=== PATIENT | female | born 1955 | race Caucasian/White ===

== ENCOUNTER 2017-08-04 12:59 | Inpatient (IN) ==
[2017-08-04] MEDS ORDERED: 0.9 % Sodium Chloride 1,000 ML IVC ONE ×2 (13:21→14:21)
[2017-08-04] MEDS ORDERED: Ipratropium/Albuterol Neb 3 ML IH ONE (13:21)
[2017-08-04] MEDS ORDERED: methylPREDNISolone 125 MG/2 ML VIAL IVP ONE (13:21)
--- NOTE | 2017-08-04 13:26 | Emergency Department Note ---
Disposition Clinical Impression: Acute exacerbation of chronic obstructive airways disease, Acute respiratory failure with hypoxia and hypercapnia Leucocytosis Qualifiers: Leukocytosis type: unspecified Qualified Code(s): D72.829 - Elevated white blood cell count, unspecified Disposition: Admitted As Inpatient Condition: Fair Referrals: Chiqui Slater CNP [Primary Care Provider] - Forms: ED Satisfaction Letter SOB HPI - General Chief Complaint: ED Shortness of Breath/Dyspnea Stated Complaint: resp distress Time Seen by Provider: 08/04/17 13:02 Source: patient, family (brother) Limitations: no limitations Nursing Notes Reviewed: Yes Vital Signs Reviewed: Yes - History of Present Illness 62-year-old female presents for evaluation of shortness of breath. Patient had home health nurse check her pulse oximeter today and was found to be quite low at 79%. Patient is on chronic O2 therapy at 2-1/2 L. Patient was then brought to the emergency department. Patient states that over the last 2 days she has been coughing with productive sputum. She states no fever. She denies any chest pain. She states she also has had issues related to constipation with some mild discomfort in her left lower quadrant and decreased bowel movements. Patient has had multiple issues related to her lungs. She has known history of COPD and has had multiple admissions of pneumonia. - Related Data Home Medications Medication Instructions Recorded Confirmed Folic Acid 1 mg PO DAILY 06/16/15 06/28/17 Levothyroxine [Synthroid] 25 mcg PO DAILY 06/16/15 06/28/17 Montelukast [Singulair] 10 mg PO DAILY 11/18/15 06/28/17 Oxygen 3 l IH AD 11/18/15 06/28/17 FLUoxetine HCl [Fluoxetine HCl] 40 mg PO DAILY 06/14/16 06/28/17 Fluticasone Propionate Nasal 2 spr NS PRN PRN 02/02/17 06/28/17 [Flonase] Carvedilol [Coreg] 6.25 mg PO BID 04/21/17 06/28/17 Anastrozole [Arimidex] 1 mg PO DAILY 06/28/17 06/28/17 Previous Rx's Medication Instructions Recorded Insulin Glargine,Hum.rec.anlog 40 unit SQ HS #1 07/11/16 [Lantus Solostar] Albuterol Neb [Proventil Neb] 2.5 mg IH [id number] PRN inh 02/09/17 Polyethylene Glycol 3350 [MiraLAX 1 scoop PO DAILY #510 gm 04/21/17 Powder Bulk 17.9 Oz] Metoclopramide [Reglan] 5 mg PO QIDAC #120 tablet 05/13/17 Furosemide [Lasix] 20 mg PO BID #28 tab 05/20/17 Gabapentin [Neurontin] 300 mg PO TID #90 capsule 05/20/17 Insulin LISPRO [HumaLOG] 15 units SQ TIDWM 30 Days #0 vial 05/20/17 OxyCODONE Immed Rel [Roxicodone 5 5 mg PO Q6HR PRN #20 tab 05/20/17 MG] diazePAM [Valium] 5 mg PO TID PRN #20 tablet 05/20/17 Allergies Allergy/AdvReac Type Severity Reaction Status Date / Time acetaminophen [From Tylenol] Allergy Hives Verified 06/17/17 22:37 ibuprofen AdvReac Nausea Verified 06/17/17 22:37 NSAIDS (Non-Steroidal AdvReac Nausea Verified 06/17/17 22:37 Anti-Inflamma Review of Systems: Constitutional: [Negative for fever and chills.] HENT: [Negative for congestion.] Eyes: [Negative for discharge.] Respiratory: See history of present illness Cardiovascular: [Negative for chest pain.] Gastrointestinal: [Negative for nausea, vomiting, abdominal pain and diarrhea.] Positive for constipation Endocrine: [Negative for excessive thirst,urination] Genitourinary: [Negative for dysuria and frequency.] Musculoskeletal: [Negative for myalgias and arthralgias.] Skin: [Negative for rash.] Neurological: [Negative for dizziness, localized weakness and headaches.] Psychiatric/Behavioral: [Negative for nervous/anxious.] All other systems reviewed and are negative. Past Medical History - Past Medical History Attestation: Yes The following information was validated with the patient. Source: patient Medical history: Reports: arthritis, asthma, COPD, coronary artery disease, CVA , diabetes, GERD, hyperlipidemia, hypertension, thyroid disease, TIA Surgical history: Reports: breast surgery, orthopedic, other, other Psychiatric history: Reports: anxiety, depression FIELD SERVICES DIRECTOR history: Reports: no FIELD SERVICES DIRECTOR history - Social History Smoking Status: Current every day smoker Smokeless Tobacco Status: No Alcohol use: Reports: none Drug use: Reports: none Physical Exam Constitutional: Patient is [alert], obese and has a frequent gurgling-type cough and cooperative. . The patient appears symptomatic, nontoxic but does appear mildly ill. HENT: Head: Normocephalic and atraumatic. Right Ear: External ear normal. Left Ear: External ear normal. Nose: Nose normal. Mouth/Throat: Oropharynx is clear and mucous membranes show [good hydration.] Eyes: Conjunctivae and EOM are normal. Pupils are equal, round, and reactive to light. Right eye exhibits [no] discharge. Left eye exhibits [no] discharge. Neck: Trachea is midline, normal range of motion and [phonation normal]. Neck supple. Cardiovascular: [Regular rhythm], S1 normal, S2 normal, normal heart sounds and intact distal pulses. Exam reveals no gallop and no friction rub. No murmur heard. [Capillary refill is brisk.] [Peripheral pulses are 2+] Pulmonary/Chest: Effort increased No stridor. Mild tachypnea. [No] respiratory distress. There are decreased breath sounds. There are few rhonchi and wheezes heard throughout. Abdominal: Soft. [Bowel sounds are normal]. There exhibits [no] distension and [no] mass. There is no hepatosplenomegaly. There is [no tenderness], [no] CVA tenderness. There is [no rigidity, no rebound, no guarding]. Musculoskeletal: Normal range of motion of uninvolved extremities. There exhibits [no edema]. [ ] Neurological: Patient is alert. Patient displays no atrophy and no tremor. No cranial nerve deficit and exhibits normal muscle tone. Coordination normal grossly. Skin: Skin is warm and dry. No erythema. No rash noted. Psychiatric: Patient has a normal mood and affect. Course Course Narrative: Patient has received 2 breathing treatments and Solu-Medrol IV and still has wheezes on exam. She still requires oxygen. Her laboratory studies do not show this any significant infection with no elevated lactate no edema and a mildly elevated white count. I discussed the case with Dr. Aldana and we will admit her for further treatment. Vital Signs Temperature 96.6 F L 08/04/17 13:04 Pulse Rate 92 08/04/17 13:04 Respiratory Rate 18 08/04/17 13:04 Blood Pressure 126/64 08/04/17 13:04 O2 Sat by Pulse Oximetry 79 08/04/17 13:04 Temperature 96.6 F L 08/04/17 13:04 Pulse Rate 77 08/04/17 14:56 Respiratory Rate 18 08/04/17 14:56 Blood Pressure 128/76 08/04/17 14:56 O2 Sat by Pulse Oximetry 88 08/04/17 14:56 Oxygen Delivery Oxygen Delivery Nasal Cannula Shortness of Breath/Dyspnea - Differential Diagnosis Likely: acute exacerbation of chronic obstructive airways disease, pneumonia. Unlikely: congestive heart failure, asthma with exacerbation, pulmonary embolism , pneumothorax, arrhythmia - Medical Records Medical records reviewed: Yes I reviewed the patient's medical records. - Lab Data Lab results reviewed: Yes I reviewed the patient's lab results. Result diagrams: 08/04/17 13:40 08/04/17 13:40 Lab Results 08/04/17 08/04/17 08/04/17 Range/Units 11:40 13:40 13:40 WBC 17.1 H (4.3-11.1) K/mcL RBC 4.16 (3.82-4.97) M/mcL Hgb 12.2 (11.5-15.4) g/dL Hct 37.8 (35.3-44.9) % MCV 90.9 (83.0-100.0) fL MCH 29.3 (28.0-33.3) pg MCHC 32.3 (31.6-35.5) g/dL RDW 16.2 H (11.5-14.5) % Plt Count 331 (140-400) K/mcL MPV 9.3 L (9.4-12.4) fL Immature Gran % 0.8 (0-4) % Seg Neutrophils % 72.9 % Lymphocytes % 11.7 % Monocytes % 7.9 % Eosinophils % 6.3 % Basophils % 0.4 % Neutrophils # 12.5 H (1.6-8.9) K/mcL Lymphocytes # 2.0 (0.6-4.6) K/mcL Monocytes # 1.4 H (0.0-1.3) K/mcL Eosinophils # 1.1 H (0.0-0.6) K/mcL Basophils # 0.1 (0.0-0.2) K/mcL Nucleated RBCs/100 WBC 0.2 H (0) /100 WBC PT (9.4-12.1) Seconds INR APTT (26.0-36.0) Seconds ABG pH (7.32-7.45) pH Units ABG pCO2 (35-45) mmHg ABG pO2 (85-104) mmHg ABG HCO3 (21-27) mEq/L ABG Total CO2 (20-26) mEq/L ABG O2 Saturation (95-98) % ABG Base Excess (-2 to 3) mEq/L Sodium (136-145) mEq/L Potassium (3.5-5.1) mEq/L Chloride (98-107) mEq/L Carbon Dioxide (23-29) mEq/L BUN (8-23) mg/dL Creatinine (0.60-1.20) mg/dL Est GFR ( Amer) (> 60) Est GFR (Non-Af Amer) (> 60) BUN/Creatinine Ratio (6-26) Glucose (70-105) mg/dL Calculated Osmolality (280-300) Lactic Acid (0.5-2.2) mmol/L Calcium (8.6-10.3) mg/dL Total Bilirubin 0.3 (0.3-1.0) mg/dL Direct Bilirubin 0.1 (0.0-0.2) mg/dL Indirect Bilirubin 0.2 (0.0-1.2) mg/dL AST 6 L (13-39) Units/L ALT 6 L (7-52) Units/L Alkaline Phosphatase 72 (34-104) Units/L Troponin I (< 0.04) ng/mL B-Natriuretic Peptide (Less than 100) pg/mL Serum Total Protein 6.4 (6.4-8.9) g/dL Albumin 3.5 (3.5-5.7) g/dL Globulin 2.9 (2.4-3.5) g/dL Albumin/Globulin Ratio 1.2 (1.1-2.2) Urine Color Yellow (Yellow) Urine Clarity Clear (Clear) Urine pH 5.5 (5.0-8.0) pH Units Ur Specific [place] 1.015 (1.010-1.025) Urine Protein 100 H (Neg-Trace) mg/dL Urine Glucose (UA) >=1000 H (Normal) mg/dL Urine Ketones Negative (Negative) mg/dL Urine Blood Negative (Negative) Urine Nitrite Negative (Negative) Urine Bilirubin Negative (Negative) Urine Urobilinogen Normal (Normal) mg/dL Ur Leukocyte Esterase Negative (Negative) Urine Microscopic WBC 0-3 (0-3) per hpf Ur Squamous Epith Cells Moderate H (None-Few) per lpf Amorphous Sediment Few (Few) Urine Bacteria Moderate H (None-Few) per hpf Hyaline Casts Few (None-Few) per lpf Ur Culture Indicated? NO (NO) 08/04/17 08/04/17 08/04/17 Range/Units 13:40 13:40 13:40 WBC (4.3-11.1) K/mcL RBC (3.82-4.97) M/mcL Hgb (11.5-15.4) g/dL Hct (35.3-44.9) % MCV (83.0-100.0) fL MCH (28.0-33.3) pg MCHC (31.6-35.5) g/dL RDW (11.5-14.5) % Plt Count (140-400) K/mcL MPV (9.4-12.4) fL Immature Gran % (0-4) % Seg Neutrophils % % Lymphocytes % % Monocytes % % Eosinophils % % Basophils % % Neutrophils # (1.6-8.9) K/mcL Lymphocytes # (0.6-4.6) K/mcL Monocytes # (0.0-1.3) K/mcL Eosinophils # (0.0-0.6) K/mcL Basophils # (0.0-0.2) K/mcL Nucleated RBCs/100 WBC (0) /100 WBC PT 11.9 (9.4-12.1) Seconds INR 1.1 APTT 25.3 L (26.0-36.0) Seconds ABG pH (7.32-7.45) pH Units ABG pCO2 (35-45) mmHg ABG pO2 (85-104) mmHg ABG HCO3 (21-27) mEq/L ABG Total CO2 (20-26) mEq/L ABG O2 Saturation (95-98) % ABG Base Excess (-2 to 3) mEq/L Sodium 134 L (136-145) mEq/L Potassium 4.0 (3.5-5.1) mEq/L Chloride 94 L (98-107) mEq/L Carbon Dioxide 35 H (23-29) mEq/L BUN 15 (8-23) mg/dL Creatinine 1.08 (0.60-1.20) mg/dL Est GFR ( Amer) > 60 (> 60) Est GFR (Non-Af Amer) 52 L (> 60) BUN/Creatinine Ratio 14 (6-26) Glucose 416 H (70-105) mg/dL Calculated Osmolality 296 (280-300) Lactic Acid 1.0 (0.5-2.2) mmol/L Calcium 9.3 (8.6-10.3) mg/dL Total Bilirubin (0.3-1.0) mg/dL Direct Bilirubin (0.0-0.2) mg/dL Indirect Bilirubin (0.0-1.2) mg/dL AST (13-39) Units/L ALT (7-52) Units/L Alkaline Phosphatase (34-104) Units/L Troponin I (< 0.04) ng/mL B-Natriuretic Peptide (Less than 100) pg/mL Serum Total Protein (6.4-8.9) g/dL Albumin (3.5-5.7) g/dL Globulin (2.4-3.5) g/dL Albumin/Globulin Ratio (1.1-2.2) Urine Color (Yellow) Urine Clarity (Clear) Urine pH (5.0-8.0) pH Units Ur Specific [place] (1.010-1.025) Urine Protein (Neg-Trace) mg/dL Urine Glucose (UA) (Normal) mg/dL Urine Ketones (Negative) mg/dL Urine Blood (Negative) Urine Nitrite (Negative) Urine Bilirubin (Negative) Urine Urobilinogen (Normal) mg/dL Ur Leukocyte Esterase (Negative) Urine Microscopic WBC (0-3) per hpf Ur Squamous Epith Cells (None-Few) per lpf Amorphous Sediment (Few) Urine Bacteria (None-Few) per hpf Hyaline Casts (None-Few) per lpf Ur Culture Indicated? (NO) 08/04/17 08/04/17 08/04/17 Range/Units 13:40 13:40 14:08 WBC (4.3-11.1) K/mcL RBC (3.82-4.97) M/mcL Hgb (11.5-15.4) g/dL Hct (35.3-44.9) % MCV (83.0-100.0) fL MCH (28.0-33.3) pg MCHC (31.6-35.5) g/dL RDW (11.5-14.5) % Plt Count (140-400) K/mcL MPV (9.4-12.4) fL Immature Gran % (0-4) % Seg Neutrophils % % Lymphocytes % % Monocytes % % Eosinophils % % Basophils % % Neutrophils # (1.6-8.9) K/mcL Lymphocytes # (0.6-4.6) K/mcL Monocytes # (0.0-1.3) K/mcL Eosinophils # (0.0-0.6) K/mcL Basophils # (0.0-0.2) K/mcL Nucleated RBCs/100 WBC (0) /100 WBC PT (9.4-12.1) Seconds INR APTT (26.0-36.0) Seconds ABG pH 7.37 (7.32-7.45) pH Units ABG pCO2 65 H (35-45) mmHg ABG pO2 68 L (85-104) mmHg ABG HCO3 37 H (21-27) mEq/L ABG Total CO2 39 H (20-26) mEq/L ABG O2 Saturation 92 L (95-98) % ABG Base Excess 9 H (-2 to 3) mEq/L Sodium (136-145) mEq/L Potassium (3.5-5.1) mEq/L Chloride (98-107) mEq/L Carbon Dioxide (23-29) mEq/L BUN (8-23) mg/dL Creatinine (0.60-1.20) mg/dL Est GFR ( Amer) (> 60) Est GFR (Non-Af Amer) (> 60) BUN/Creatinine Ratio (6-26) Glucose (70-105) mg/dL Calculated Osmolality (280-300) Lactic Acid (0.5-2.2) mmol/L Calcium (8.6-10.3) mg/dL Total Bilirubin (0.3-1.0) mg/dL Direct Bilirubin (0.0-0.2) mg/dL Indirect Bilirubin (0.0-1.2) mg/dL AST (13-39) Units/L ALT (7-52) Units/L Alkaline Phosphatase (34-104) Units/L Troponin I 0.03 (< 0.04) ng/mL B-Natriuretic Peptide 124 H (Less than 100) pg/mL Serum Total Protein (6.4-8.9) g/dL Albumin (3.5-5.7) g/dL Globulin (2.4-3.5) g/dL Albumin/Globulin Ratio (1.1-2.2) Urine Color (Yellow) Urine Clarity (Clear) Urine pH (5.0-8.0) pH Units Ur Specific [place] (1.010-1.025) Urine Protein (Neg-Trace) mg/dL Urine Glucose (UA) (Normal) mg/dL Urine Ketones (Negative) mg/dL Urine Blood (Negative) Urine Nitrite (Negative) Urine Bilirubin (Negative) Urine Urobilinogen (Normal) mg/dL Ur Leukocyte Esterase (Negative) Urine Microscopic WBC (0-3) per hpf Ur Squamous Epith Cells (None-Few) per lpf Amorphous Sediment (Few) Urine Bacteria (None-Few) per hpf Hyaline Casts (None-Few) per lpf Ur Culture Indicated? (NO) - Radiology Data Radiology results reviewed: Yes I reviewed the patient's radiology results. XR/XR chest 1V portable IMPRESSION: No acute finding or significant change on this portable study with significant rotation. - EKG Data EKG attestation: Yes I reviewed and interpreted this EKG. EKG shows normal: Reports: sinus rhythm, axis, intervals Rate: Reports: normal Rhythm: Reports: NSR Interpretation: Reports: nonspecific ST-T wave changes
[2017-08-04 13:45] LABS: Basophils # 0.1 K/mcL (0.0-0.2); Basophils % 0.4 %; Eosinophils # 1.1 K/mcL (0.0-0.6); Eosinophils % 6.3 %; Hematocrit 37.8 % (35.3-44.9); Hemoglobin 12.2 g/dL (11.5-15.4); Immature Granulocytes % 0.8 % (0-4); Lymphocytes % 11.7 %; Mean Corpuscular HGB Conc 32.3 g/dL (31.6-35.5); Mean Corpuscular Hemoglobin 29.3 pg (28.0-33.3); Mean Corpuscular Volume 90.9 fL (83.0-100.0); Mean Platelet Volume 9.3 fL (9.4-12.4); Monocytes # 1.4 K/mcL (0.0-1.3); Monocytes % 7.9 %; Neutrophils # 12.5 K/mcL (1.6-8.9); Nucleated Red Blood Cells 0.2 /100 WBC (0); Platelet Count 331 K/mcL (140-400); Red Blood Count 4.16 M/mcL (3.82-4.97); Red Cell Distribution Width 16.2 % (11.5-14.5); Segmented Neutrophils % 72.9 %
[2017-08-04 13:54] LABS: INR 1.1; Prothrombin Time 11.9 Seconds (9.4-12.1)
[2017-08-04 13:56] LABS: Activated Partial Thrombo Time 25.3 Seconds (26.0-36.0)
[2017-08-04 14:05] LABS: Albumin 3.5 g/dL (3.5-5.7); Albumin/Globulin Ratio 1.2 (1.1-2.2); Bilirubin,Direct 0.1 mg/dL (0.0-0.2); Bilirubin,Indirect 0.2 mg/dL (0.0-1.2); Bilirubin,Total 0.3 mg/dL (0.3-1.0); Globulin 2.9 g/dL (2.4-3.5); Total Protein 6.4 g/dL (6.4-8.9)
[2017-08-04 14:06] LABS: BUN/Creatinine Ratio 14 (6-26); Blood Urea Nitrogen 15 mg/dL (8-23); Calcium 9.3 mg/dL (8.6-10.3); Carbon Dioxide 35 mEq/L (23-29); Chloride 94 mEq/L (98-107); Glucose 416 mg/dL (70-105); Osmolality,Calculated 296 (280-300); Sodium 134 mEq/L (136-145); eGFR For African Americans > 60 (> 60); eGFR For Non-African Americans 52 (> 60)
[2017-08-04 14:19] LABS: Bilirubin,Urine Negative (Negative); Blood,Urine Negative (Negative); Clarity,Urine Clear (Clear); Color,Urine Yellow (Yellow); Glucose,Urine (UA) >=1000 mg/dL (Normal); Ketones,Urine Negative (Negative); Leukocyte Esterase,Urine Negative (Negative); Nitrite,Urine Negative (Negative); PH,Urine 5.5 pH Units (5.0-8.0); Protein,Urine 100 mg/dL (Neg-Trace); Specific Gravity,Urine 1.015 (1.010-1.025); Urobilinogen,Urine Normal (Normal)
[2017-08-04] MEDS ORDERED: Insulin Regular, Human 100 UNIT/ML IV ONE (14:21)
[2017-08-04] MEDS ORDERED: Insulin Regular, Human 100 UNIT/ML SQ ONE (14:21)
[2017-08-04 14:26] LABS: ABG Base Excess 9 mEq/L (-2 to 3); ABG HCO3 37 mEq/L (21-27); ABG Oxygen Saturation 92 % (95-98); ABG PCO2 65 mmHg (35-45); ABG PH 7.37 pH Units (7.32-7.45); ABG PO2 68 mmHg (85-104); ABG TCO2 39 mEq/L (20-26)
[2017-08-04 14:55] LABS: Amorphous Sediment,Urine Few (Few); Hyaline Casts,Urine Few per lpf (None-Few); WBC,Urine 0-3 per hpf (0-3)
[2017-08-04 14:56] LABS: Bacteria,Urine Moderate per hpf (None-Few); Squamous Epithelial Cell,Urine Moderate per lpf (None-Few)
[2017-08-04] MEDS ORDERED: *HR* Dextrose 50 % in Water (Syg) 50 ML SYRINGE IVP PRN (15:35)
[2017-08-04] MEDS ORDERED: 0.9 % Sodium Chloride 1,000 ML IVC SCH (15:35)
[2017-08-04] MEDS ORDERED: *HR* OxyCODONE Immed Rel 5 MG TABLET PO PRN (15:35)
[2017-08-04] MEDS ORDERED: *HR* HYDROcodone/Acet 5/325 mg TABLET PO PRN (15:35)
[2017-08-04] MEDS ORDERED: D5% in Water 1,000 ML IVC PRN (15:35)
[2017-08-04] MEDS ORDERED: Naloxone 0.4 MG/ML INJ IVP PRN (15:35)
[2017-08-04] MEDS ORDERED: Albuterol 2.5 MG/3 ML NEBULIZER IH PRN (15:35)
[2017-08-04] MEDS ORDERED: Dextrose Gel 15 GM PO PRN ×2 (15:35)
[2017-08-04] MEDS ORDERED: Vancomycin 750 MG in 0.9 % Sodium Chloride Mini Bag 100 ML IVPB SCH (16:00)
[2017-08-04] MEDS: Piperacillin/Tazobactam 3.375 GM in 0.9 % Sodium Chloride Mini Bag 100 ML IVPB SCH (17:13)
[2017-08-04] MEDS: Insulin LISPRO 300 UNITS/3 ML VIAL SQ SCH ×2 (17:22→21:23)
--- NOTE | 2017-08-04 17:51 | Internal Med History&Physical ---
Date of Encounter: 08/04/17 Time of Encounter: 19:56 Assessment and Plan (1) Acute exacerbation of chronic obstructive airways disease Current visit: Yes Status: Acute will keep on the oxygen give her solumedrol, duo nebs. albuterol nebs prn, cont home mdi. she was just on levaquin for a rll pneumonia as an outpt. will treat with vanco since her last sputum grew mrsa and her wbc are elevated, blood cultures . She is on BiPAP currently cannot take her off she since she became hypoxic when asking her questions about her H&P. . She did recover. Then we rolled her over to check her skin and she decided again. We increased her oxygen and she recovered. She was somnolent when she came to the floor that did not improve with the BiPAP. (2) Leucocytosis Current visit: Yes Status: Acute she has grown mrsa in her sputum in dec. will treat with vanco and pip/gilson Qualifiers: Leukocytosis type: unspecified Qualified Code(s): D72.829 - Elevated white blood cell count, unspecified (3) Diabetes mellitus Current visit: No Status: Chronic home medication she is on lantus, accuchecks and ssi med scale Qualifiers: Diabetes mellitus type: type 2 Diabetes mellitus complication status: without complication Diabetes mellitus intermodal owner operator truck driver insulin use: with intermodal owner operator truck driver use Qualified Code(s): E11.9 - Type 2 diabetes mellitus without complications ; Z79.4 - skilled nursing (current) use of insulin; Z79.4 - skilled nursing (current) use of insulin; Z79.4 - skilled nursing (current) use of insulin; Z79.4 - medical terminologist ( current) use of insulin (4) Hypertension Current visit: No Status: Chronic will continue home medication Qualifiers: Hypertension type: essential hypertension Qualified Code(s): I10 - Essential (primary) hypertension (5) Tobacco use Current visit: No Status: Chronic (6) History of tremor Current visit: No Status: Chronic (7) Depression Current visit: No Status: Chronic will continue her home medication, but not schedule the diazepam use it prn due to resp risk Qualifiers: Depression Type: unspecified Qualified Code(s): F32.9 - Major depressive disorder, single episode, unspecified (8) DVT prophylaxis Current visit: No Status: Acute lovenox (9) Obstructive sleep apnea Current visit: No Status: Chronic will have family get her home bipap machine (10) Hypoventilation associated with obesity syndrome Current visit: No Status: Chronic (11) Hypothyroidism Current visit: No Status: Chronic continue home medication Qualifiers: Hypothyroidism type: acquired Qualified Code(s): E03.9 - Hypothyroidism, unspecified (12) History of DVT (deep vein thrombosis) Current visit: No Status: Chronic lovenox (13) CKD (chronic kidney disease) stage 4, GFR 15-29 ml/min Current visit: No Status: Chronic (14) Morbid obesity with BMI of 45.0-49.9, adult Current visit: No Status: Chronic Internal Medicine - H&P: HPI Chief complaint: cannot Admitted From: Home Plans for Post Hospital Care: Home History of present illness: Ms. Chen is a 62 year old female Who was admitted from home 2 weeks ago she started having coughing wheezing short of breath Hope ALEJANDRA Slater made a house call and noted her to have a right lower lobe pneumonia she was started on Levaquin. She did not get any better she got progressively short of breath coughing not feeling well she was confused she was disoriented. Her brother called the squad she was brought in here. She was hypoxic in the 70s. Her oxygen was increased. She was brought in for COPD exacerbation. She became somnolent. Nursing staff put the BiPAP on her. She did have some noted improvement she was able to be alert and answer questions but she could not take off the BiPAP to answer questions or she became hypoxic again. She states she has had some palpitations. We rolled her over to check her skin she became hypoxic again. We had to increase her oxygen on the BiPAP. It took her a while to recover after that. She had an elevated white count. She also had a history of MRSA in her sputum in May she has a history of pulmonary hypertension and hypoxia due to hypoventilation and obesity. She has not been wearing her BiPAP for several weeks because she has to get up for frequent urination. She states this to heart get off and on. Past Med Surg Social Fam HX - Past Medical History Medical history: arthritis, asthma, cancer (breast cancer), COPD, coronary artery disease, CVA, diabetes (on insulin), GERD, hyperlipidemia, hypertension, pulmonary embolus, renal disease, thyroid disease (hypo), TIA, other (pulm htn, restrictive lung disease due to obesity,mastocytosis, dermatomyositis, tremor, diabetic neuropathy,angeli filter, vitamin d def ) Psychiatric history: anxiety, depression - Past Surgical History Surgical History: breast surgery, orthopedic, other, other (ivc filter, egd colonoscopy 2009, tonsil 1971, toenail 2000, debridement necrotic pablo 2011, d& c, right ulnar nerve and left decompression, b/l TRucut bx breast malignant, bilateral mastectomy with sentinal node bx, abscess 2011) - Social History Smoking Status: Current every day smoker Smokeless Tobacco Status: No Alcohol use: none Drug use: none - Family History Mother Living Status: Hx Family Cardiac Disorders: Yes Hx Family Respiratory Disorders: Yes (emphysema) Hx Family Cancer: Yes (uterine cancer) Father Living Status: Hx Family Cardiac Disorders: Yes (mi, htn) Sister Living Status: Age at : 62 Cause of : suicide Hx Family Respiratory Disorders: Yes (copd) Brother Hx Family Neurologic Disorders: Yes (seizure) Internal Medicine - H&P: Meds Folic Acid 1 mg PO DAILY 06/16/15 [History] Levothyroxine [Synthroid] 25 mcg PO DAILY 06/16/15 [History] Montelukast [Singulair] 10 mg PO DAILY 11/18/15 [History] Oxygen 3 l IH AD 11/18/15 [History] FLUoxetine HCl [Fluoxetine HCl] 40 mg PO DAILY 06/14/16 [History] Insulin Glargine,Hum.rec.anlog [Lantus Solostar] 40 unit SQ HS #1 07/11/16 [Rx] Fluticasone Propionate Nasal [Flonase] 2 spr NS PRN PRN 02/02/17 [History] Albuterol Neb [Proventil Neb] 2.5 mg IH [id number] PRN inh 02/09/17 [Rx] Carvedilol [Coreg] 6.25 mg PO BID 04/21/17 [History] Polyethylene Glycol 3350 [MiraLAX Powder Bulk 17.9 Oz] 1 scoop PO DAILY #510 gm 04/21/17 [Rx] Metoclopramide [Reglan] 5 mg PO QIDAC #120 tablet 05/13/17 [Rx] Furosemide [Lasix] 20 mg PO BID #28 tab 05/20/17 [Rx] Gabapentin [Neurontin] 300 mg PO TID #90 capsule 05/20/17 [Rx] Insulin LISPRO [HumaLOG] 15 units SQ TIDWM 30 Days #0 vial 05/20/17 [Rx] diazePAM [Valium] 5 mg PO TID PRN #20 tablet 05/20/17 [Rx] Anastrozole [Arimidex] 1 mg PO DAILY 06/28/17 [History] Aspirin [Ecotrin] 325 mg PO DAILY 08/04/17 [History] Cholecalciferol (Vitamin D3) [Vitamin D3] 1 PO QWEEK 08/04/17 [History] Fluticasone/Vilanterol [Breo Ellipta 200-25 Mcg INH] 1 IH DAILY 08/04/17 [ History] Humulin 70/30 Kwikpen 17 units SQ TID 08/04/17 [History] Ipratropium/Albuterol Neb [Duoneb] 1 Q4HR PRN 08/04/17 [History] Ipratropium/Albuterol Sulfate [Combivent Respimat Inhal [place]] 4 gm IH QID 08/04 [History] Magnesium Oxide [Mgo] 400 mg PO BID 08/04/17 [History] Sennosides/Docusate Sodium [Senna-S Tablet] 1 each PO BID PRN 08/04/17 [History] Simvastatin [Zocor] 20 mg PO HS 08/04/17 [History] hydrOXYzine HCl [Hydroxyzine HCl] 25 mg PO TID PRN 08/04/17 [History] 3 Allergy/AdvReac Type Severity Reaction Status Date / Time acetaminophen [From Tylenol] Allergy Hives Verified 06/17/17 22:37 ibuprofen AdvReac Nausea Verified 06/17/17 22:37 NSAIDS (Non-Steroidal AdvReac Nausea Verified 06/17/17 22:37 Anti-Inflamma ROS unobtainable: other (BiPAP) All Systems PM: A 10-system review of systems was performed and is negative for pertinent findings except as documented above in the HPI. - Constitutional Constitutional: fatigue, no fever(s) - EENT Eyes: no change in vision - Cardiovascular Cardiovascular ROS IM: dyspnea, palpitations, no chest pain, no edema, no lightheadedness, no syncope - Respiratory Respiratory: cough, dyspnea, dyspnea on exertion, wheezing, chest congestion, no hemoptysis - Gastrointestinal Gastrointestinal: constipation, no diarrhea, no melena, no nausea, no vomiting - Genitourinary Genitourinary: urinary frequency, no dysuria - Integumentary Integumentary IM: no pruritus, no rash - Constitutional Vitals: Temp Pulse Resp BP Pulse Ox 97.6 F 70 18 139/75 91 08/04/17 16:22 08/04/17 16:22 08/04/17 16:22 08/04/17 16:22 08/04/17 16:22 General appearance: Present: A&O X 2 (She had ASCUS with the date was), obese. Absent: no acute distress (Mild distress from removed general drove her to check her skin. She did recover after that. She is in no acute distress currently) - Head Head exam: Present: atraumatic, normocephalic - Neck Neck exam general surgery: Present: supple - Respiratory Respiratory exam: Present: prolonged expiratory phase, wheezes - Cardiovascular Cardiovascular exam: Present: RRR. Absent: systolic murmur - GI/Abdominal GI/Abdominal exam: Present: normal bowel sounds (Obese limiting exam she does have a scar of the pannus from her prior surgical debridement), soft, no peritoneal signs. Absent: tenderness - Extremities Exam Extremities exam: Present: normal capillary refill, warm. Absent: pedal edema - Skin Skin exam: Present: abrasion (To the right great toe dorsally. No erythema. She states is been that way for a long time. Appears it could possibly be a scar.), dry, warm Internal Med - H&P Results - Labs CBC & Chem 7: 08/04/17 13:40 08/04/17 13:40
[2017-08-04] MEDS: Ipratropium/Albuterol Neb 3 ML IH SCH ×2 (18:07→21:30)
[2017-08-04] MEDS ORDERED: hydrOXYzine pamoate 25 MG CAPSULE PO PRN (19:48)
[2017-08-04] MEDS ORDERED: Sennosides/Docusate Sodium TABLET PO PRN (19:48)
[2017-08-04] MEDS ORDERED: INSULIN REGULAR SQ SCH (21:00)
[2017-08-04] MEDS ORDERED: Insulin DETEMIR 100 UNIT/ML X5UNITS SQ SCH (21:00)
[2017-08-04] MEDS ORDERED: NON-FORMULARY MEDICATION 1 EACH EACH (Ipratropium/Albuterol Sulfate [Combivent Respimat In IH SCH (21:00)
[2017-08-04] MEDS ORDERED: INSULIN ISOPHANE SQ SCH (21:00)
[2017-08-04] MEDS: Magnesium Oxide 400 MG TABLET PO SCH (21:07)
[2017-08-04] MEDS: Furosemide 20 MG TABLET PO SCH (21:07)
[2017-08-04] MEDS: Gabapentin 300 MG CAPSULE PO SCH (21:08)
[2017-08-04] MEDS: methylPREDNISolone 125 MG/2 ML VIAL IVP SCH (21:27)
[2017-08-05] MEDS: Ipratropium/Albuterol Neb 3 ML IH SCH ×4 (00:21→11:34)
[2017-08-05] MEDS: Insulin LISPRO 300 UNITS/3 ML VIAL SQ SCH ×5 (00:23→11:43)
[2017-08-05] MEDS: Piperacillin/Tazobactam 3.375 GM in 0.9 % Sodium Chloride Mini Bag 100 ML IVPB SCH ×2 (00:26→10:24)
[2017-08-05] MEDS: methylPREDNISolone 125 MG/2 ML VIAL IVP SCH ×2 (04:09→11:34)
[2017-08-05 04:34] LABS: Basophils % 0.2 %; Hematocrit 35.9 % (35.3-44.9); Hemoglobin 11.3 g/dL (11.5-15.4); Immature Granulocytes % 0.9 % (0-4); Lymphocytes # 0.9 K/mcL (0.6-4.6); Lymphocytes % 4.6 %; Mean Corpuscular HGB Conc 31.5 g/dL (31.6-35.5); Mean Corpuscular Volume 92.1 fL (83.0-100.0); Mean Platelet Volume 9.4 fL (9.4-12.4); Monocytes % 1.2 %; Neutrophils # 19.1 K/mcL (1.6-8.9); Nucleated Red Blood Cells 0.1 /100 WBC (0); Platelet Count 312 K/mcL (140-400); Segmented Neutrophils % 93.1 %
[2017-08-05 04:43] LABS: Monocytes # 0.3 K/mcL (0.0-1.3)
[2017-08-05 04:51] LABS: Calcium 8.9 mg/dL (8.6-10.3); Potassium 4.6 mEq/L (3.5-5.1)
--- NOTE | 2017-08-05 06:48 | Internal Med Progress Note ---
Date of Encounter: 08/05/17 Time of Encounter: 06:48 - Assessment and plan (1) Acute respiratory failure with hypoxia and hypercapnia Current Visit: Yes Status: Acute Assessment and plan: Her just patient of COPD and possible underlying infection is not showing improvement this morning. Her saturations on admission were better in the 90s with BiPAP, now rarely in the 90s typically in the 80s. If she is off BiPAP onto nasal cannula, or being dressed, or turning her over her saturations drop in the 70s. White blood cell count jumped from 17,000 to 20,000. This may represent either early sepsis picture or this may be from the steroids. Since we do not have respiratory therapy available 24 hours per day, and not available on the weekends at all, I am concerned about how long to wait until we may need to urgently intervene for her. I am going to see if there are beds available at [facility]. We will continue her current regimen here. (2) Leucocytosis Current Visit: Yes Status: Acute Assessment and plan: When she arrived pleasant, 17,000. It is now to 20,000. Some of this may be from IV steroids. 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 She is not febrile. She is not hypotensive. Qualifiers: Leukocytosis type: unspecified Qualified Code(s): D72.829 - Elevated white blood cell count, unspecified (3) Acute kidney injury Current Visit: No Status: Acute Assessment and plan: Her chronic renal failure worsened a bit. She is getting IV fluids currently. We will continue monitoring. (4) Altered mental status Current Visit: No Status: Acute Assessment and plan: When she arrived to the floor last night she had altered mental status changes. After staying on BiPAP for a while that improved. She has been clear sensorium since then. Qualifiers: Altered mental status type: transient alteration of awareness Qualified Code(s): R40.4 - Transient alteration of awareness (5) Cognitive deficit following cerebrovascular accident (CVA) Current Visit: No Status: Acute Assessment and plan: She had a CVA in the past and has had some cognitive as well as right lower extremity weakness. No new changes in that. (6) Type 2 diabetes mellitus Current Visit: Yes Status: Acute Assessment and plan: she chronically has insulin-dependent diabetes and she takes an unusual amount and schedule for insulin. To simplify things we are going to use sliding scale as well as her Levemir and hold the 70/30 in the routine short acting for now. We are not sure how well she is going to be able to eat, or tolerate being off oxygen to eat. Qualifiers: Diabetes mellitus complication status: without complication Diabetes mellitus retirement insulin use: with intermediate teacher use Qualified Code(s): E11.9 - Type 2 diabetes mellitus without complications; Z79.4 - skilled nursing (current) use of insulin; Z79.4 - skilled nursing (current) use of insulin; Z79.4 - skilled nursing ( current) use of insulin; Z79.4 - intermodal customer service (current) use of insulin (7) Hypothyroidism Current Visit: No Status: Chronic Qualifiers: Hypothyroidism type: acquired Qualified Code(s): E03.9 - Hypothyroidism, unspecified (8) Morbid obesity with BMI of 45.0-49.9, adult Current Visit: No Status: Chronic (9) Tobacco use Current Visit: Yes Status: Chronic Assessment and plan: She is requesting a nicotine patch and will be started today. (10) DVT prophylaxis Current Visit: No Status: Acute - Subjective Interval history: "I feel better". She did not get much sleep last night because of frequent vital checks and oxygen testing. She denies any cardiac type chest pain. She told me she is breathing better while on the BiPAP. Neck she staff reports that when they turn her over to put her on a bedpan her saturations drop into the 70s. Rarely through the night were they able to maintain oxygen level in the 90s. Typically the best is 88%. When she was on 6 L per nasal cannula saturations were in the 70s and 80s. She can be off BiPAP for 1 bite of food at a time. When her saturation drop to 70s her speech is slow and her mentation and speech changes and becomes slower. - Constitutional Vitals: Temp Pulse Resp BP Pulse Ox 98.2 F 81 22 114/66 90 08/05/17 04:00 08/05/17 04:00 08/05/17 04:21 08/05/17 04:21 08/05/17 04:21 General appearance: Present: A&O X 2, obese. Absent: no acute distress (Mild distress from removed general drove her to check her skin. She did recover after that. She is in no acute distress currently) Exam: She is able to talk and answer questions while on BiPAP. - Respiratory Respiratory exam: Present: decreased breath sounds (Very diminished breath sounds but clear. No respiratory distress while on BiPAP) - Cardiovascular Cardiovascular exam: Present: distant heart sounds, RRR, +S1, +S2 - GI/Abdominal Additional comments: Morbidly obese but abdomen is nontender. - Extremities Exam Extremities exam: Absent: calf tenderness, mottling, pedal edema, tenderness - Neurological Exam Neurological exam: Present: alert, CN II-XII intact, oriented X3. Absent: strengths equal and symetr throughout (She has 4-5 strength in the right quads and hamstrings and foot exam. I could not check standing or gait because of her hypoxia) Internal Medicine: Result - Labs CBC & Chem 7: 08/05/17 04:23 08/05/17 04:23 Labs: Short CBC 08/05/17 Range/Units 04:23 WBC 20.5 H (4.3-11.1) K/mcL Hgb 11.3 L (11.5-15.4) g/dL Hct 35.9 (35.3-44.9) % Plt Count 312 (140-400) K/mcL Neutrophils # 19.1 H (1.6-8.9) K/mcL BMP 08/05/17 04:23 Sodium 134 L Potassium 4.6 Chloride 98 Carbon Dioxide 30 H BUN 22 Creatinine 1.23 H Glucose 458 H Calcium 8.9 White blood cell count is elevated further today. Carbon dioxide is 30. Creatinine has worsened a bit from 1.08 to 1.23. Follow up lactate level is pending. Follow-up ABG is pending. - ABG Interpretation ABG results: ABG ABG pH 7.37 pH Units (7.32-7.45) 08/04/17 14:08 ABG pCO2 65 mmHg (35-45) H 08/04/17 14:08 ABG pO2 68 mmHg (85-104) L 08/04/17 14:08 ABG O2 Saturation 92 % (95-98) L 08/04/17 14:08 PT/INR, D-dimer PT 11.9 Seconds (9.4-12.1) 08/04/17 13:40 Consult Discharge Plan - Plan Referrals: Apryl Fan MD [Primary Care Provider] -
[2017-08-05] MEDS ORDERED: *HR* Enoxaparin 40 MG/0.4 ML SYRINGE SQ SCH (07:00)
[2017-08-05 08:35] LABS: ABG Base Excess 4 mEq/L (-2 to 3); ABG HCO3 31 mEq/L (21-27); ABG Oxygen Saturation 88 % (95-98); ABG PCO2 54 mmHg (35-45); ABG PH 7.37 pH Units (7.32-7.45); ABG PO2 57 mmHg (85-104); ABG TCO2 33 mEq/L (20-26)
[2017-08-05] MEDS ORDERED: Aspirin Enteric Coated 325 MG Tablet PO SCH (09:00)
[2017-08-05] MEDS ORDERED: Anastrozole 1 MG TABLET PO SCH (09:00)
[2017-08-05] MEDS ORDERED: Nicotine 21 MG PATCH.TD24 TD SCH (09:00)
[2017-08-05] MEDS ORDERED: Levothyroxine 25 MCG TABLET PO SCH (09:00)
[2017-08-05] MEDS ORDERED: FLUoxetine 20 MG CAPSULE PO SCH (09:00)
[2017-08-05] MEDS ORDERED: Folic Acid 1 MG TABLET PO SCH (09:00)
[2017-08-05 09:18] VITALS: BP 124/66
[2017-08-05] MEDS: Magnesium Oxide 400 MG TABLET PO SCH (09:29)
[2017-08-05] MEDS: Furosemide 20 MG TABLET PO SCH (09:29)
[2017-08-05] MEDS: Gabapentin 300 MG CAPSULE PO SCH (09:29)
--- NOTE | 2017-08-05 09:47 | Discharge Summary ---
Date of Encounter: 08/05/17 Time of Encounter: 09:44 - Discharge Diagnosis (1) Acute respiratory failure with hypoxia and hypercapnia Priority: Primary Status: Acute Comments: Patient was admitted yesterday with exacerbation of COPD and respiratory failure. She is oxygen dependent at home and uses BiPAP at night and when she naps. Last night after admission she had acute mental status changes, was hypoxic and required BiPAP. Through the night it was difficult to maintain her oxygenation into the 90s. With any bit of movement, turning, eating or being off BiPAP her saturations dropped to the 70s. As long she is on her BiPAP she is comfortable, alert and at her usual mentation. However, we do not have respiratory therapy at night or on weekends and she is going to need close supervision of the BiPAP and had availability of emergent intubation if needed. I recommend that the patient be transferred to [facility] for a higher level of care. She is agreeable to that. I spoke with Marquez who has agreed to accept her care. In the meantime she will continue with her IV steroids, oxygen with via BiPAP/ CPAP, and coverage for possible underlying pneumonia infection. (2) Leucocytosis Priority: Secondary Status: Acute Comments: White blood cell count went from17,000 on admission to 20,000 today. This may signal an infection or may be related to steroids. She continues to have vancomycin and Zosyn on board. Blood cultures are pending. Qualifiers: Leukocytosis type: unspecified Qualified Code(s): D72.829 - Elevated white blood cell count, unspecified (3) Acute kidney injury Status: Acute (4) Altered mental status Status: Acute Qualifiers: Altered mental status type: transient alteration of awareness Qualified Code(s): R40.4 - Transient alteration of awareness (5) Cognitive deficit following cerebrovascular accident (CVA) Status: Acute (6) Type 2 diabetes mellitus Status: Acute Qualifiers: Diabetes mellitus complication status: without complication Diabetes mellitus care home insulin use: with care home use Qualified Code(s): E11.9 - Type 2 diabetes mellitus without complications; Z79.4 - parts counterman (current) use of insulin; Z79.4 - parts counterman (current) use of insulin; Z79.4 - halfway ( current) use of insulin; Z79.4 - parts counterman (current) use of insulin (7) Hypothyroidism Status: Chronic Qualifiers: Hypothyroidism type: acquired Qualified Code(s): E03.9 - Hypothyroidism, unspecified (8) Morbid obesity with BMI of 45.0-49.9, adult Status: Chronic (9) Tobacco use Status: Chronic (10) DVT prophylaxis Status: Acute Hospital course: Ms. Chen is a 62 year old female emitted with exacerbation of COPD. Please see the above note as well as the progress note for today. Discharge discussed with: patient - Time Spent with Patient Total time spent providing and/or coordinating discharge services: - Discharge Medications Prescriptions: Qlwbxccuogwf-Fabz-Evyjxsku,Iso [Zosyn 3.375 gm/50 ml Galaxy] 3.375 gm IV Q6HR # 1 froz.piggy Home Medications: Folic Acid 1 mg PO DAILY 06/16/15 [History] Levothyroxine [Synthroid] 25 mcg PO DAILY 06/16/15 [History] Montelukast [Singulair] 10 mg PO DAILY 11/18/15 [History] Oxygen 3 l IH AD 11/18/15 [History] FLUoxetine HCl [Fluoxetine HCl] 40 mg PO DAILY 06/14/16 [History] Insulin Glargine,Hum.rec.anlog [Lantus Solostar] 40 unit SQ HS #1 07/11/16 [Rx] Fluticasone Propionate Nasal [Flonase] 2 spr NS PRN PRN 02/02/17 [History] Albuterol Neb [Proventil Neb] 2.5 mg IH [id number] PRN inh 02/09/17 [Rx] Carvedilol [Coreg] 6.25 mg PO BID 04/21/17 [History] Polyethylene Glycol 3350 [MiraLAX Powder Bulk 17.9 Oz] 1 scoop PO DAILY #510 gm 04/21/17 [Rx] Metoclopramide [Reglan] 5 mg PO QIDAC #120 tablet 05/13/17 [Rx] Furosemide [Lasix] 20 mg PO BID #28 tab 05/20/17 [Rx] Gabapentin [Neurontin] 300 mg PO TID #90 capsule 05/20/17 [Rx] Anastrozole [Arimidex] 1 mg PO DAILY 06/28/17 [History] Aspirin [Ecotrin] 325 mg PO DAILY 08/04/17 [History] Cholecalciferol (Vitamin D3) [Vitamin D3] 1 PO QWEEK 08/04/17 [History] Fluticasone/Vilanterol [Breo Ellipta 200-25 Mcg INH] 1 IH DAILY 08/04/17 [ History] Ipratropium/Albuterol Neb [Duoneb] 1 Q4HR PRN 08/04/17 [History] Ipratropium/Albuterol Sulfate [Combivent Respimat Inhal [place]] 4 gm IH QID 08/04 [History] Magnesium Oxide [Mgo] 400 mg PO BID 08/04/17 [History] Sennosides/Docusate Sodium [Senna-S Tablet] 1 each PO BID PRN 08/04/17 [History] Simvastatin [Zocor] 20 mg PO HS 08/04/17 [History] hydrOXYzine HCl [Hydroxyzine HCl] 25 mg PO TID PRN 08/04/17 [History] Albuterol Neb [Proventil Neb] 2.5 mg IH Q2H PRN inhsol 08/05/17 [Rx] Dextrose 50 % in Water (Syg) [Dextrose 50% (Syg)] 25 ml IVP AD PRN syringe 07/24 [Rx] Dextrose Gel [Gluctose] 15 gm PO ONCE PRN gel..gram. 08/05/17 [Rx] Dextrose Gel [Gluctose] 30 gm PO ONCE PRN gel..gram. 08/05/17 [Rx] Enoxaparin [Lovenox] 40 mg SQ 0700 syringe 08/05/17 [Rx] Glucagon, Human Recombinant [Glucagen] 1 mg IM ONCE PRN vial 08/05/17 [Rx] Insulin LISPRO [HumaLOG] 0 units SQ Q6HR vial 08/05/17 [Rx] Ipratropium/Albuterol Neb [Duoneb] 3 ml IH [id number] inhsol 08/05/17 [Rx] Naloxone [Narcan] 0.4 mg IVP Q2MIN PRN inj 08/05/17 [Rx] Nicotine Patch [Nicoderm] 21 mg TD DAILY patch.td24 08/05/17 [Rx] Ksqxnhnnobpc-Akmu-Exdnjblm,Iso [Zosyn 3.375 gm/50 ml Galaxy] 3.375 gm IV Q6HR # 1 froz.piggy 08/05/17 [Rx] Vancomycin [Vancocin] 1,750 mg IVPB Q12H vial 08/05/17 [Rx] methylPREDNISolone [Solu-MEDROL] 80 mg IVP Q8H vial 08/05/17 [Rx] Allergies/Adverse Reactions: 3 Allergy/AdvReac Type Severity Reaction Status Date / Time acetaminophen [From Tylenol] Allergy Hives Verified 06/17/17 22:37 ibuprofen AdvReac Nausea Verified 06/17/17 22:37 NSAIDS (Non-Steroidal AdvReac Nausea Verified 06/17/17 22:37 Anti-Inflamma Date of admission: 08/04/17 21:53 Primary care physician: Apryl Fan, Discharging clinician: Jayden Jason Anticipated date of discharge: 08/05/17 - Constitutional Vitals: Temp Pulse Resp BP Pulse Ox 98.2 F 70 18 124/66 87 08/05/17 04:00 08/05/17 08:00 08/05/17 08:00 08/05/17 08:00 08/05/17 08:00 General appearance: Present: A&O X 2, obese. Absent: no acute distress - Respiratory Additional comments: Diminished breath sounds throughout. No wheezing. - Cardiovascular Cardiovascular exam: Present: distant heart sounds, RRR, +S1, +S2 - GI/Abdominal GI/Abdominal exam: Present: soft. Absent: tenderness - Patient Status Disposition: Transfer Short-Term Hosp Condition: Fair Functional capacity at discharge: bed bound Overall status at discharge: patient is not back to baseline - Discharge Instructions Follow Up With: Apryl Fan MD [Primary Care Provider] -
[2017-08-05] MEDS ORDERED: Aminoglycoside Consult 1 EACH MC ONE (12:45)
[2017-08-05 14:08] LABS: ABG Base Excess 6 mEq/L (-2 to 3); ABG HCO3 32 mEq/L (21-27); ABG Oxygen Saturation 90 % (95-98); ABG PCO2 52 mmHg (35-45); ABG PH 7.41 pH Units (7.32-7.45); ABG PO2 59 mmHg (85-104); ABG TCO2 34 mEq/L (20-26); Blood Gas Modality BiLevel
--- NOTE | 2017-08-05 20:24 | Electrocardiograph Report ---
[place] [id number] Test Date: 2017-08-04 Pat Name: Yoko Chen Department: 2000 Room: 112 Gender: F Senior Media Director: : 1955 Requested By: Ge Rueda Order Number: [id number] Reading MD: Agus Wolff DO Measurements Intervals [place] Rate: 88 P: 38 AL: 162 QRS: 17 QRSD: 91 T: 67 QT: 398 QTc: 443 Interpretive Statements SINUS RHYTHM NONSPECIFIC T-WAVE ABNORMALITY Electronically Signed On 08-05-2017 20:23:22 EST by Agus Wolff DO
== END 2017-08-05 12:46 | disposition short-term general hospital (02) | DRG 193 ==
LOC: INPGRE 12:59 → EMEROOGRE 12:59 → INPGRE 15:56
PROVIDERS: ADMIT Family Medicine; ATTEND Family Medicine